=== PATIENT | female | born 1960 ===

== ENCOUNTER → 2021-10-23 | Outpatient (CLI) | payer OTHER | END | disposition home or self-care (01) | LOC: LAB SHORT 13:03 → LAB 13:03 | DX: N39.0 Urinary tract infection, site not specified (principal) | CPT/HCPCS: 87077; 87086; 87186 ==

== ENCOUNTER → 2022-01-14 | Outpatient (CLI) | payer OTHER | END | disposition home or self-care (01) | LOC: LAB SHORT 14:00 → LAB 14:00 | DX: T83.511A Infection and inflammatory reaction due to indwelling urethral catheter, initial encounter (principal); N39.0 Urinary tract infection, site not specified | CPT/HCPCS: 87077; 87086; 87186 ==

== ENCOUNTER → 2022-02-25 | Outpatient (CLI) | payer OTHER | END | disposition home or self-care (01) | LOC: LAB SHORT 17:42 → LAB 17:42 | DX: T83.511A Infection and inflammatory reaction due to indwelling urethral catheter, initial encounter (principal); N39.0 Urinary tract infection, site not specified | CPT/HCPCS: 87077; 87086; 87186 ==

== ENCOUNTER 2022-04-26 09:30 | Inpatient (IN) | payer OTHER ==
[~2022-04-26] VITALS: Ht 170.2 cm; Wt 130.2 kg
[2022-04-26] MEDS ORDERED: Celexa20 MG PO (10:01)
[2022-04-26 10:29] LABS: BASOPHILS ABSOLUTE AUTO 0.09 K/mm3 (0.00-0.23); BASOPHILS PERCENT AUTO 1 % (0-2); EOSINOPHILS ABSOLUTE AUTO 0.16 K/mm3 (0.00-0.68); EOSINOPHILS PERCENT AUTO 1 % (0-6); Hematocrit 49.2 % (33.0-51.0); Hemoglobin 16.6 g/dL (11.5-16.0); IMMATURE GRAN ABSOLUTE AUTO 0.07 K/mm3 (0.00-0.10); IMMATURE GRAN PERCENT AUTO 1 % (0-1); LYMPHOCYTES ABSOLUTE AUTO 1.09 K/mm3 (0.84-5.20); LYMPHOCYTES PERCENT AUTO 7 % (21-46); MONOCYTES ABSOLUTE AUTO 1.25 K/mm3 (0.16-1.47); MONOCYTES PERCENT AUTO 8 % (4-13); Mean Corpuscular HGB 29.4 pg (26.0-34.0); Mean Corpuscular HGB Conc 33.7 g/dL (31.5-36.5); Mean Corpuscular Volume 87 fL (80-100); Mean Platelet Volume 11.1 fL (9.1-12.4); NEUTROPHILS ABSOLUTE AUTO 12.48 K/mm3 (1.96-9.15); NEUTROPHILS PERCENT AUTO 82 % (41-73); Platelet Count 311 K/mm3 (150-400); RDW Coefficient Variation 13.5 % (11.7-14.2); RDW Standard Deviation 43.2 fL (35.1-46.3); Red Blood Cell Count 5.65 M/mm3 (3.80-5.20); White Blood Cell Count 15.14 K/mm3 (4.00-11.30)
[2022-04-26 10:29] LABS: Source, Urine Straight Cath
[2022-04-26 10:31] LABS: Appearance, Urine Turbid (Clear); Bilirubin, Urine Neg (Neg); Blood, Urine 3+ (Neg); Color, Urine Yellow (P-Yellow); Glucose Qualitative, Urine Neg (Neg); Ketones, Urine 1+ (Neg); Leukocyte Esterase, Urine 3+ (Neg); Nitrite, Urine Pos (Neg); Protein, Urine 3+ (Neg); Urobilinogen, Urine NORM (Normal)
[2022-04-26 10:40] LABS: Bacteria Many /hpf; Squamous Epithelial Cells Many /hpf (Few); White Blood Cells, Urine TNTC /hpf (0-5)
[2022-04-26 10:41] LABS: Renal Epithelial Few /hpf (0-Rare)
[2022-04-26 10:50] LABS: Albumin, Blood 3.6 g/dL (3.4-5.0); Albumin/Globulin Ratio 0.8 (0.8-1.8); Bilirubin, Total 0.3 mg/dL (0.1-1.0); Bun/Creatinine Ratio 19.3 (12.0-20.0); Calcium, Blood 9.2 mg/dL (8.5-10.1); Creatinine, Blood 1.09 mg/dL (0.40-1.00); Globulin, Blood 4.7 g/dL (2.2-4.0); Thyroid Stimulating Hormone 2.63 uIU/mL (0.360-4.800); Total Protein, Blood 8.3 g/dL (6.4-8.2)
[2022-04-26 11:35] LABS: Influenza A, PCR NEGATIVE (NEGATIVE); Influenza B, PCR NEGATIVE (NEGATIVE); Resp Syncytial Virus, PCR NEGATIVE (NEGATIVE); SARS-Cov-2 (COVID-19) PCR, MMC NEGATIVE (NEGATIVE)
--- NOTE | 2022-04-26 19:36 | NUR ---
TRANSFER NOTE: PT A&0 X4, PLEASANT, AND ANXIOUS. PT TRANSFRERED VIA GURNEY ARRIVED 1650. PT TRANSFERED INDEPENDANTLY FROM [facility] TO BED. PT ORIENTATED TO ROOM, CALL LIGHT, AND COMMUNICATION BROAD. PT HAD IV ABX INFUSING. PT HAD FRIEND AT BEDSIDE. PT HAD NO COMPLAINTS OF CHEST PAIN, DISCOMFORT AT THE TIME. PT ON TELE , HAD A EPISODE OF SVT/150. PROVIDER NOTIFIED OF SVT/150 EPISODE, PT WAS TRYING TO EMPTY AND CLEAN HER OSTOMY APPLIANCE. PT RETURNED TO ONCE RETURNED TO BED AND SETTLED DOWN. PT HAS A HX OF NEUROGENIC BLADDER AND SELF CATHS X5-6 DAILY. PT HAS PERSONAL OSTOMY APPLIANCE AND SELF CATH SUPPLIES. PT HAD COMPLIANTS OF HEADACHE AND DISCOMFORT DURING SHIFT CHANGE. PT IN BED WITH CALL LIGHT WITHIN REACH.
--- NOTE | 2022-04-27 04:48 | NUR ---
WET CHAR CONVEYOR TENDER SUMMAR PT REMAINS AOX/4; PT AWAKE INTERMITTANTLY T/O THE NIGHT. NOTED WEAK COUGH; PT REPORTS HX OF DRY COUGH; NOW A MOIST COUGH. NOTED SLIGHT ADVENTITIOUS SOUNDS IN LUNG BASES. PT C/O OF SHARP HEADACHE TO THE RT MANDAEISM AND PAIN/CRAMPING IN LEGS. PT REQ SLEEP AID. CONTACTED HOSPITALIST--NEW ORDER FOR GUAIFENESIN, MELATONIN, AND FENTANYL. MANAGED PAIN W/TYLENOL AND FENTANYL 1X. PT ON TELE; HAVING EPISODES OF SVT WHEN GETTING OOB T/THE BATHROOM. DURING EPISODES PT DENIES CP, HEART PALPATATIONS, OR DIZZINESS. NOTIFIED HOSPITALIST--REQ STANDBY ASSIST OOB. PT GETTING NS IV 125MLS/HR. PT IS ORIENTED TO ROOM/CALL LIGHT. ABLE TO ADVOCATE FOR NEEDS. CALL LIGHT IN REACH.
[2022-04-27 05:13] LABS: BASOPHILS ABSOLUTE AUTO 0.07 K/mm3 (0.00-0.23); BASOPHILS PERCENT AUTO 1 % (0-2); EOSINOPHILS ABSOLUTE AUTO 0.34 K/mm3 (0.00-0.68); EOSINOPHILS PERCENT AUTO 5 % (0-6); Hematocrit 36.6 % (33.0-51.0); Hemoglobin 12.3 g/dL (11.5-16.0); IMMATURE GRAN ABSOLUTE AUTO 0.03 K/mm3 (0.00-0.10); IMMATURE GRAN PERCENT AUTO 0 % (0-1); LYMPHOCYTES ABSOLUTE AUTO 1.11 K/mm3 (0.84-5.20); LYMPHOCYTES PERCENT AUTO 15 % (21-46); MONOCYTES ABSOLUTE AUTO 0.84 K/mm3 (0.16-1.47); MONOCYTES PERCENT AUTO 12 % (4-13); Mean Corpuscular HGB 29.4 pg (26.0-34.0); Mean Corpuscular HGB Conc 33.6 g/dL (31.5-36.5); Mean Corpuscular Volume 88 fL (80-100); Mean Platelet Volume 11.4 fL (9.1-12.4); NEUTROPHILS ABSOLUTE AUTO 4.85 K/mm3 (1.96-9.15); NEUTROPHILS PERCENT AUTO 67 % (41-73); Platelet Count 189 K/mm3 (150-400); RDW Coefficient Variation 13.6 % (11.7-14.2); RDW Standard Deviation 43.5 fL (35.1-46.3); Red Blood Cell Count 4.18 M/mm3 (3.80-5.20); White Blood Cell Count 7.24 K/mm3 (4.00-11.30)
[2022-04-27 05:46] LABS: Albumin, Blood 2.6 g/dL (3.4-5.0); Albumin/Globulin Ratio 0.8 (0.8-1.8); Bilirubin, Total 0.3 mg/dL (0.1-1.0); Bun/Creatinine Ratio 13.7 (12.0-20.0); Calcium, Blood 8.3 mg/dL (8.5-10.1); Creatinine, Blood 0.73 mg/dL (0.40-1.00); Globulin, Blood 3.1 g/dL (2.2-4.0); Potassium, Blood 4.2 mmol/L (3.5-5.5); Total Protein, Blood 5.7 g/dL (6.4-8.2)
--- NOTE | 2022-04-27 19:23 | NUR ---
SHIFT SUMMARY: P&O X4 PLEASANT AND COOPERATIVE. PT RECVEIED IV FLUIDS AND IV ABX WITH NO S/S OF ADVERSE AFFECTS. PT HAD NO COMPLAINTS OF PAIN THROUGHOUT THE SHIFT. PT HAD NO EPISODES OF SVT'S THROUGHOUT THE SHIFT, PT SINUS/94. PT REQUIRED A NEW IV DUE TO PAIN AND TENDERNESS, RIGHT AC DC'D AND JACKSON CHARGE NURSE PLACE A LEFT FOREARM IV. DR. CASON ORDERED LOPRESSOR 12.5MG PO BID, PT HAD NO ADVERSE OR DECREASE HR. PT ADVANCED TO FULL LIQUID DIET AND TOLERATED WELL. PT IS IN BED WITH CALL LIGHT WITHIN REACH.
[2022-04-28 06:11] LABS: Bun/Creatinine Ratio 9.2 (12.0-20.0); Calcium, Blood 8.3 mg/dL (8.5-10.1); Creatinine, Blood 0.77 mg/dL (0.40-1.00); Potassium, Blood 4.3 mmol/L (3.5-5.5)
--- NOTE | 2022-04-28 06:56 | NUR ---
SHIFT SUMMARY PATIENT ALERT AND ORIENTED. VSS, TELE IN PLACE,
--- NOTE | 2022-04-28 07:09 | NUR ---
SHIFT SUMMARY PATIENT ALERT AND ORIENTED, ANXIOUS AT TIMES. VSS, PATIENT ON RA WITH O2 SAT >90%. MEDICATED WITH TYLENOL FOR 100.1 FEVER WITH GREAT RELIEF. MEDICATED PER EMAR FOR PAIN. PATIENT HAS ILEOSTOMY AND SELF CATHS INDEPENDENTLY. AMBULATES IN THE ROOM INDEPENDENTLY. NO OTHER CHANGES THIS SHIFT, WILL REPORT TO DAY SHIFT RN.
--- NOTE | 2022-04-28 17:08 | NUR ---
SHIFT SUMMARY NO ACUTE CHANGES DURING SHIFT. PT ALERT AND ORIENTED, CALLS APPROPRIATELY, INDEPENDENT IN ROOM. PT ADVANCED TO REGULAR DIET THIS EVENING. PT REMAINS ON RA. ANTIBIOTICS TRANSITIONED TO PO IN PREPARATION FOR DISCHARGE TOMORROW. WILL CONTINUE TO MONITOR. CALL LIGHT WITHIN REACH.
--- NOTE | 2022-04-29 04:08 | NUR ---
SHIFT SUMMARY ADMITTED FOR BILAT PNEUMONIA/UTI/SEPSIS. FULL CODE. HOPEFUL FOR DC HOME TODAY. A&O X4. ON RA. INDEPENDENT IN ROOM. ILLEOSTOMY IN RT MIDDLE ABDOMEN. HX OF NEUROGENIC BLADDER, SELF CATHS. HX OF CROHN'S/ABDOMINAL ABSCESSES. PAIN MEDICATION GIVEN THIS SHIFT. NO NEW CONCERNS.
[2022-04-29] MEDS ORDERED: AMOX875 PO (11:03)
[2022-04-29] MEDS ORDERED: VISBIOME 112.51 EACH PO (11:04)
[2022-04-29] MEDS ORDERED: MELATONIN5 M1 PO (11:05)
[2022-04-29] MEDS ORDERED: METO25ER PO (11:35)
--- NOTE | 2022-04-29 13:51 | NUR ---
DISCHARGE SUMMARY PATIENT IS ALERT AND ORIENTED. PATIENT HAS HAD NO ACUTE EVENTS THIS SHIFT. VITAL SIGNS REVIEWED. PATIENT IS BEING DISCHARGED HOME. MARYSOL HERNANDEZ TRANSPORTED PT TO PATIENTS FRIEND CAR.
== END 2022-04-29 13:00 | disposition home or self-care (01) | DRG 698 ==
LOC: ER 09:30 → MEDS 15:37
PROVIDERS: Student in an Organized Health Care Education/Training Program; ADMIT Internal Medicine
DX: T83.518A Infection and inflammatory reaction due to other urinary catheter, initial encounter (principal); A41.59 Other Gram-negative sepsis; J18.9 Pneumonia, unspecified organism; R65.20 Severe sepsis without septic shock; E87.20 Acidosis, unspecified; N39.0 Urinary tract infection, site not specified; N17.9 Acute kidney failure, unspecified; E87.1 Hypo-osmolality and hyponatremia; J44.0 Chronic obstructive pulmonary disease with (acute) lower respiratory infection; I47.1 Supraventricular tachycardia; E86.9 Volume depletion, unspecified; F32.A Depression, unspecified; N31.9 Neuromuscular dysfunction of bladder, unspecified; M19.90 Unspecified osteoarthritis, unspecified site; Z90.49 Acquired absence of other specified parts of digestive tract; Z20.822 Contact with and (suspected) exposure to COVID-19; Z93.3 Colostomy status; Z87.19 Personal history of other diseases of the digestive system; Z91.041 Radiographic dye allergy status; Z79.899 Other long term (current) drug therapy; Z87.891 Personal history of nicotine dependence; Y84.6 Urinary catheterization as the cause of abnormal reaction of the patient, or of later complication, without mention of misadventure at the time of the procedure
CPT/HCPCS: 0241U; 36415; 71046; 74176; 80048; 80053; 81001; 83605; 83690; 83735; 84443; 85025; 87040; 87077; 87086; 87186; 94760; 96361; 96365; 96375; 99285-25; A9270; J0456; J0696; J1650; J2405; J3010; J7030; J7050

== ENCOUNTER → 2022-05-27 | Outpatient (CLI) | payer OTHER ==
[~2022-05-27] MED LIST: AMOX875 PO; Celexa20 MG PO; MELATONIN5 M1 PO; METO25ER PO; VISBIOME 112.51 EACH PO
== END ==
LOC: LAB SHORT 15:00 → LAB 15:00
DX: N39.0 Urinary tract infection, site not specified (principal); K50.813 Crohn's disease of both small and large intestine with fistula; T83.511D Infection and inflammatory reaction due to indwelling urethral catheter, subsequent encounter
CPT/HCPCS: 87077; 87086; 87186

== ENCOUNTER → 2023-01-23 | Outpatient (CLI) | payer OTHER | END | disposition home or self-care (01) | LOC: LAB SHORT 16:42 → LAB 16:42 | DX: T83.511D Infection and inflammatory reaction due to indwelling urethral catheter, subsequent encounter (principal); N39.0 Urinary tract infection, site not specified | CPT/HCPCS: 87077; 87086; 87186 ==

== ENCOUNTER 2023-01-31 12:04 | Emergency (ER) | payer OTHER ==
[~2023-01-31] VITALS: Ht 170.2 cm; Wt 58.5 kg
[2023-01-31 13:02] LABS: BASOPHILS ABSOLUTE AUTO 0.07 K/mm3 (0.00-0.23); BASOPHILS PERCENT AUTO 1 % (0-2); EOSINOPHILS ABSOLUTE AUTO 0.05 K/mm3 (0.00-0.68); EOSINOPHILS PERCENT AUTO 0 % (0-6); Hematocrit 49.9 % (33.0-51.0); IMMATURE GRAN ABSOLUTE AUTO 0.03 K/mm3 (0.00-0.10); IMMATURE GRAN PERCENT AUTO 0 % (0-1); LYMPHOCYTES ABSOLUTE AUTO 1.68 K/mm3 (0.84-5.20); LYMPHOCYTES PERCENT AUTO 14 % (21-46); MONOCYTES ABSOLUTE AUTO 0.52 K/mm3 (0.16-1.47); MONOCYTES PERCENT AUTO 5 % (4-13); Mean Corpuscular HGB 30.1 pg (26.0-34.0); Mean Corpuscular HGB Conc 34.1 g/dL (31.5-36.5); Mean Corpuscular Volume 89 fL (80-100); Mean Platelet Volume 10.8 fL (9.1-12.4); NEUTROPHILS ABSOLUTE AUTO 9.32 K/mm3 (1.96-9.15); NEUTROPHILS PERCENT AUTO 80 % (41-73); Platelet Count 312 K/mm3 (150-400); RDW Coefficient Variation 13.2 % (11.7-14.2); Red Blood Cell Count 5.64 M/mm3 (3.80-5.20); White Blood Cell Count 11.67 K/mm3 (4.00-11.30)
[2023-01-31 13:26] LABS: Albumin, Blood 4.2 g/dL (3.4-5.0); Albumin/Globulin Ratio 1.1 (0.8-1.8); Bilirubin, Total 0.7 mg/dL (0.1-1.0); Bun/Creatinine Ratio 16.7 (12.0-20.0); Calcium, Blood 9.4 mg/dL (8.5-10.1); Creatinine, Blood 1.02 mg/dL (0.40-1.00); Globulin, Blood 3.8 g/dL (2.2-4.0); Potassium, Blood 4.4 mmol/L (3.5-5.5)
[2023-01-31 14:20] LABS: Appearance, Urine Cloudy (Clear); Bilirubin, Urine Neg (Neg); Blood, Urine 2+ (Neg); Color, Urine Yellow (P-Yellow); Glucose Qualitative, Urine Neg (Neg); Ketones, Urine 2+ (Neg); Leukocyte Esterase, Urine 3+ (Neg); Nitrite, Urine Neg (Neg); Protein, Urine 2+ (Neg); Specific Gravity, Urine 1.025 (1.003-1.022); Urobilinogen, Urine NORM (Normal)
[2023-01-31 14:26] LABS: Bacteria Many /hpf; Squamous Epithelial Cells Many /hpf (Few); White Blood Cells, Urine TNTC /hpf (0-5)
[2023-01-31 14:29] LABS: Calcium Oxalate Crystals Rare /hpf
[2023-01-31 14:30] LABS: Renal Epithelial Rare /hpf (0-Rare)
[2023-01-31] MEDS ORDERED: Bactrim Ds Tab1 EACH PO (16:05)
[2023-01-31 17:20] VITALS: BP 159/90
== END 2023-01-31 17:29 | disposition home or self-care (01) ==
LOC: ER 12:04
PROVIDERS: Physician Assistant
DX: N39.0 Urinary tract infection, site not specified (principal); R53.1 Weakness; R42 Dizziness and giddiness; Z91.041 Radiographic dye allergy status
CPT/HCPCS: 80053; 81001; 83735; 85025; 87077; 87086; 87186; 93005; 93010; 96374; 99284-25; J0696; J7030

== ENCOUNTER → 2023-02-24 | Outpatient (CLI) | payer MEDICARE, OTHER ==
[~2023-02-24] MED LIST changes: +Bactrim Ds Tab1 EACH PO
== END | disposition home or self-care (01) ==
LOC: LAB SHORT 13:13 → LAB 13:13
DX: N39.0 Urinary tract infection, site not specified (principal)
CPT/HCPCS: 87077; 87086; 87186